=== PATIENT | female | born 1995 | race Caucasian/White ===

== ENCOUNTER 2020-03-23 10:54 | Outpatient (REF) | payer OTHER, SELFPAY ==
[2020-03-23 16:18] LABS: CT PCR NOT DETECTED (Not Detect.); NG PCR NOT DETECTED (Not Detect.)
[2020-03-24 09:42] LABS: BV Int Neg Control Negative (Negative); BV Int Pos Control Positive (Positive)
== END 2020-03-23 10:55 | disposition home or self-care (01) ==
LOC: HO.LAB 10:54
PROVIDERS: Visit Provider Advanced Practice Midwife
DX: Z01.419 Encounter for gynecological examination (general) (routine) without abnormal findings (principal); Z11.8 Encounter for screening for other infectious and parasitic diseases; Z11.3 Encounter for screening for infections with a predominantly sexual mode of transmission
CPT/HCPCS: 87480; 87491; 87510; 87591; 87660

== ENCOUNTER 2020-03-30 12:46 | Outpatient (REF) | payer OTHER, SELFPAY ==
[2020-03-30 13:04] LABS: COVID-19 Test Negative (Negative)
== END 2020-03-30 12:47 | disposition home or self-care (01) ==
LOC: HO.LAB 12:46
PROVIDERS: Visit Provider Internal Medicine
DX: Z20.828 Contact with and (suspected) exposure to other viral communicable diseases (principal)
CPT/HCPCS: 87635

== ENCOUNTER 2021-01-13 09:30 | Outpatient (REF) | payer OTHER, SELFPAY ==
[2021-01-14 13:10] LABS: CT PCR NOT DETECTED (Not Detect.); NG PCR NOT DETECTED (Not Detect.)
[2021-01-14 13:47] LABS: Syphilis Screen Nonreactive (Nonreactive)
[2021-01-14 14:33] LABS: BV Int Neg Control Negative (Negative); BV Int Pos Control Positive (Positive)
[2021-01-14 21:26] LABS: Herpes Simplex Type 1 IgG 1.32 index; Herpes Simplex Type 2 IgG <0.90 index
[2021-01-16 04:46] LABS: HIV AB/AG Nonreactive (Nonreactive); HIV Num 1 0.06 S/CO (0.00-0.99); ~HepC Num1 0.13 S/CO (0.00-0.79); ~Hepatitis C Antibody Nonreactive (Nonreactive)
[2021-01-16 06:01] LABS: HBsAGNum1 2.46 S/CO (0.00-0.99); HBsAGNum2 Nonreactive; HBsAGNum3 Nonreactive; Hepatitis B Surface Antigen NEGATIVE (Negative)
== END 2021-01-13 09:31 | disposition home or self-care (01) ==
LOC: HO.LAB 09:30
PROVIDERS: Visit Provider Advanced Practice Midwife
DX: A60.00 Herpesviral infection of urogenital system, unspecified (principal); N90.89 Other specified noninflammatory disorders of vulva and perineum; Z11.3 Encounter for screening for infections with a predominantly sexual mode of transmission
CPT/HCPCS: 36415; 86695; 86696; 86780; 86803; 87255; 87340; 87389; 87480; 87491; 87510; 87591; 87660

== ENCOUNTER → 2021-02-01 09:28 | Outpatient (BNVA) | payer OTHER, SELFPAY | PROVIDERS: Visit Provider Advanced Practice Midwife ==

== ENCOUNTER → 2022-03-19 10:01 | Outpatient (RCR) | payer OTHER, SELFPAY ==
[2020-04-12 06:45] LABS: COVID-19 Test Negative (Negative)
[2020-04-25 14:56] LABS: COVID-19 Test Negative (Negative); IDNOW Serial# 9DD0AD1C
== END | disposition home or self-care (01) ==
LOC: HO.EMPCOV 04-12 06:15
PROVIDERS: Visit Provider Internal Medicine
DX: Z20.828 Contact with and (suspected) exposure to other viral communicable diseases (principal)
CPT/HCPCS: 87635; C9803